=== PATIENT | female | born 1930 | race Caucasian/White ===

== ENCOUNTER 2016-07-06 02:34 | Inpatient (IN) | payer OTHER, MEDICARE ==
[2016-07-06] MEDS ORDERED: ALBUTEROL SO4 2.5/IPRATROPIUM 0.5 INH SOL 3 ML VIAL.NEB. NEB ONE (03:03)
[2016-07-06 03:05] LABS: MCH 33.6 pg (25.7-33.7); MCHC 32.6 g/dl (32.0-36.0); MEAN CELL VOLUME 102.8 fl (80-96); MEAN PLT VOLUME 8.6 fl (7.5-11.1); PLATELET COUNT 333 K/MM3 (134-434); RDW 18.9 % (11.6-15.6); WHITE BLOOD COUNT 4.1 K/mm3 (4.0-10.0)
[2016-07-06] MEDS ORDERED: NITROGLYCERIN 2% OINTMENT - 1GM PACKET TD ONE (03:14)
[2016-07-06] MEDS ORDERED: FUROSEMIDE 40 MG/4 ML INJECTABLE VIAL IVPUSH ONE ×2 (03:14→03:25)
[2016-07-06 03:19] LABS: INR 2.97 (0.82-1.09); PROTHROMBIN TIME (PATIENT) 33.4 SEC (9.98-11.88)
[2016-07-06 03:22] LABS: ACTIVATED PTT 31.8 SECONDS (26.9-34.4)
[2016-07-06] MEDS ORDERED: FUROSEMIDE 40 MG/4 ML INJECTABLE VIAL ONE (03:30)
[2016-07-06 04:01] LABS: ANISOCYTOSIS 1+; PLATELET COMMENT2 MOD LARGE PLTS; PLATELET ESTIMATE ADEQUATE (NORMAL)
[2016-07-06] MEDS ORDERED: methylPREDNISolone NA SUCC 125 MG/2 ML VIAL IVPB ONE (04:03)
[2016-07-06] MEDS ORDERED: LEVOFLOXACIN 500 MG IVPB 100 ML IVPB ONE (04:07)
[2016-07-06] MEDS ORDERED: LEVOFLOXACIN 250 MG IVPB 50 ML IVPB ONE (04:07)
[2016-07-06] MEDS ORDERED: methylPREDNISolone NA SUCC 125 MG/2 ML VIAL ONE (04:07)
[2016-07-06 04:15] LABS: METAMYELOCYTE 3 % (0-2)
[2016-07-06 04:18] LABS: URINE APPEARANCE TURBID; URINE BILIRUBIN NEGATIVE (NEGATIVE); URINE COLOR YELLOW; URINE GLUCOSE (UA) NEGATIVE (NEGATIVE); URINE KETONE NEGATIVE (NEGATIVE); URINE NITRITE NEGATIVE (NEGATIVE); URINE UROBILINOGEN NEGATIVE E.U./dl (0.2-1.0)
--- NOTE | 2016-07-06 04:18 | PDOC ---
History of Present Illness - General Chief Complaint: Shortness of Breath Stated Complaint: DIFFICULTY BREATHING Time Seen by Provider: 07/06/16 02:48 History Source: Family, Custodial Records Exam Limitations: Clinical Condition - History of Present Illness Initial Comments: 07/06/16 04:13 86yo Female patient presents to ED via EMS from [facility] for difficulty breathing/hypoxia. Staff report patient vomited today and may have aspirated her vomitus. Tammy (Daughter) states while visiting patient today , patient verbalized she wasnt feeling good. Tammy states when she returned later in the day, she noticed mother having trouble breathing which eventually progressed. Daughter reports hx rectal CA, Liver failure, Renal failure, DM, HTN , Pacemaker, recurrent UTI, Pneumonia, elevated ammonia and others. Patient was given zofran by staff at [facility] for nausea. Patient in a DNR. Past History - Travel Traveled outside of the country in the last 30 days: No Close contact w/someone who was outside of country & ill: No - Past Medical History Allergies/Adverse Reactions: Allergies Allergy/AdvReac Type Severity Reaction Status Date / Time No Known Allergies Allergy Verified 07/06/16 02:44 Home Medications: Ambulatory Orders Allopurinol [Zyloprim -] 300 mg PO DAILY 12/08/15 Ascorbic Acid [Vitamin C] 500 mg PO DAILY 12/08/15 Cholecalciferol (Vitamin D3) [Vitamin D3] 50,000 unit PO WEEKLY 12/08/15 Diltiazem Cd [Cardizem Cd -] 300 mg PO DAILY 12/08/15 Furosemide [Lasix -] 40 mg PO DAILY 12/08/15 Glipizide [Glucotrol -] 5 mg PO DAILY 12/08/15 Insulin Detemir [Levemir Flextouch] 15 unit SQ HS 12/08/15 Metolazone [Zaroxolyn -] 2.5 mg PO DAILY 12/08/15 Pantoprazole Sodium [Protonix -] 40 mg PO DAILY 12/08/15 Potassium Chloride [K-Dur -] 20 meq PO DAILY 12/08/15 Propranolol HCl [Inderal -] 40 mg PO TID 12/08/15 Tiotropium [place] [Spiriva] 1 inh PO DAILY 12/08/15 Warfarin Sodium [Coumadin] 1.5 mg PO HS 07/02/16 Anemia: Yes Asthma: No Cancer: Yes (Breast,rectal, skin) Cardiac Disorders: Yes (afib, mitral insuff, PPM) CVA: No COPD: No CHF: Yes Dementia: No Diabetes: Yes (IDDM) GI Disorders: No Disorders: Yes (RENAL STONE) HTN: Yes Hypercholesterolemia: Yes Liver Disease: No Seizures: No Thyroid Disease: No - Surgical History Abdominal Surgery: Yes (18 inches of intestine removed) Appendectomy: No Cardiac Surgery: Yes (pacemaker) Cholecystectomy: No Lung Surgery: No Neurologic Surgery: No Orthopedic Surgery: No - Immunization History Immunization Up to Date: Yes - Psycho/Social/Smoking Cessation Hx Anxiety: No Suicidal Ideation: No Smoking Status: No Smoking History: Never smoked Have you smoked in the past 12 months: No Number of Cigarettes Smoked Daily: 0 Hx Alcohol Use: No Drug/Substance Use Hx: No Substance Use Type: None Hx Substance Use Treatment: No Respiratory Specific PMHX - Complaint Specific PMHX Angina: No Bronchitis: No Pneumonia: Yes Pulmonary Embolus: No TB (Tuberculosis): No Review of Systems - Review of Systems Constitutional: No: Chills, Fever Respiratory: Yes: Cough, Shortness of Breath, Other (Difficulty Breathing) Cardiac (ROS): Yes: Edema, Other (Pacemaker). No: Chest Pain ABD/GI: Yes: Nausea, Poor Appetite, Poor Fluid Intake, Vomiting. No: Constipated, Diarrhea, Rectal Bleeding, Tarry Stools : Yes: Dysuria. No: Burning, Discharge, Frequency, Hematuria, Pain, Urgency Musculoskeletal: Yes: Muscle Weakness. No: Back Pain Integumentary: No: Bruising, Erythema, Rash, Sweating Neurological: No: Headache, Numbness, Paresthesia, Seizure, Tingling, Tremors, Weakness, Unsteady Gait, Ataxia, Dizziness Hematologic/Lymphatic: Yes: Easy Bleeding, Easy Bruising. No: Anemia All Other Systems: Reviewed and Negative *Physical Exam - Vital Signs Last Vital Signs Temp Pulse Resp BP Pulse Ox 98.4 F 100 H 24 144/127 83 L 07/06/16 02:36 07/06/16 02:36 07/06/16 02:36 07/06/16 02:36 07/06/16 02:36 - Physical Exam General Appearance: Yes: Apparent Distress, Severe Distress. No: Nourished, Appropriately Dressed, Disheveled, Mild Distress, Moderate Distress Neck: positive: Trachea midline, Supple. negative: Stridor, Lymphadenopathy (R) , Lymphadenopathy (L) Respiratory/Chest: positive: Respiratory Distress, Labored Respiration, Rapid RR , Crackles (Throughout all lung marcus). negative: Accessory Muscle Use Cardiovascular: positive: Tachycardia (130) Gastrointestinal/Abdominal: positive: Soft, Increased Bowel Sounds, Distended. negative: Guarding, Rebound, Tenderness Musculoskeletal: positive: Normal Inspection. negative: CVA Tenderness Extremity: positive: Normal Range of Motion, Delayed Capillary Refill, Pedal Edema, Swelling. negative: Cyanosis, Calf Tenderness, Erythema Integumentary: positive: Dry, Warm, Pale. negative: Cold, Clammy, Rash, Swelling, Bruising Neurologic: positive: Alert, Responsive Heart Score/ECG Review - History History: Slightly suspicious - Electrocardiogram EKG: Non specific repolarization disturbance - Age Age: >/= 65 - Risk Factors Risk Factors Heart Score: Yes Hx Hypertension, Yes Hx Diabetes Based on the list above the patient has:: 1-2 risk factors - Troponin Troponin: </= normal limit - Score Heart Score - Total: 4 - ECG Impressions Normal ECG: No Non-specific ST Elevation: No Ischemic Changes: No Bradycardia: No Tachycardia: Afib w/rapid Vent rate Torsades mariah Pointes: No WPW: No ED Treatment Course - LABORATORY CBC & Chemistry Diagram: 07/06/16 02:55 07/06/16 06:20 - ADDITIONAL ORDERS Additional order review: Laboratory Results 07/06/16 07/06/16 02:55 02:55 INR 2.97 H PTT (Actin FS) 31.8 Sodium Cancelled Potassium Cancelled Chloride Cancelled Carbon Dioxide Cancelled Anion Gap Cancelled BUN Cancelled Creatinine Cancelled Creat Clearance w eGFR Cancelled Random Glucose Cancelled Calcium Cancelled Total Bilirubin Cancelled AST Cancelled ALT Cancelled Alkaline Phosphatase Cancelled Creatine Kinase Cancelled Troponin I Cancelled B-Natriuretic Peptide Cancelled Total Protein Cancelled Albumin Cancelled 07/06/16 02:55 RBC 3.71 D MCV 102.8 H MCHC 32.6 RDW 18.9 H MPV 8.6 Neutrophils % Bread Oven Operator Lymphocytes % Bread Oven Operator Monocytes % Bread Oven Operator Eosinophils % Bread Oven Operator Basophils % Bread Oven Operator - RADIOLOGY Radiology Studies Ordered: Category Date Time Status CHEST X-RAY PORTABLE* [RAD] Stat Radiology 07/06/16 02:49 Taken - Medications Given in the ED: ED Medications Discontinued Medications Generic Name Dose Route Start Last Admin Trade Name Adam PRN Reason Stop Dose Admin Furosemide 40 mg 07/06/16 03:14 07/06/16 03:55 Lasix Injection - IVPUSH 07/06/16 03:15 Not Given ONCE ONE Furosemide 60 mg 07/06/16 03:25 07/06/16 03:54 Lasix Injection - IVPUSH 07/06/16 03:26 60 mg ONCE ONE Administration Nitroglycerin 1 inch 07/06/16 03:14 07/06/16 03:54 Nitro-Bid 2% Paste - TD 07/06/16 03:15 1 inch ONCE ONE Administration Medical Decision Making - Critical Care Time Total Critical Care Time (minutes): 180 Critical Care Statement: The care of this patient involved high complexity decision making to prevent further life threatening deterioration of the patient 's condition and/or to evalute & treat vital organ system(s) failure or risk of failure. - Medical Decision Making 07/06/16 04:29 Patient jail resident. Will do full work-up (CBC, CMP, INR, Cardiac Profile, EKG, Chest X-ray, Urinalysis, Lactic Acid, Ammonia level, ABG, BNP). Give lasix 60mg IV, Nitro paste TD, Levoquin 750mg call for admission. Differential 1. Sepsis 2. Pneumonia 3. Acute Heart Failure 4. UTI 5. ME 07/06/16 07:29 SPOKE WITH [facility] [employer] ([facility]). PATIENT ADMITTED TO THIS UNIT. *DC/Admit/Observation/Transfer Diagnosis at time of Disposition: Hypoxia, Pacemaker, Bandemia Acute exacerbation of CHF (congestive heart failure) Qualifiers: Congestive heart failure type: unspecified congestive heart failure type Qualified Code(s): I50.9 - Heart failure, unspecified Leukocytosis (leucocytosis) Qualifiers: Leukocytosis type: bandemia Qualified Code(s): D72.825 - Bandemia Diabetes mellitus Qualifiers: Diabetes mellitus type: type 1 Diabetes mellitus complication status: without complication Qualified Code(s): E10.9 - Type 1 diabetes mellitus without complications Aspiration pneumonia Qualifiers: Aspiration pneumonia type: due to vomit Laterality: right Lung location: upper lobe of lung Qualified Code(s): J69.0 - Pneumonitis due to inhalation of food and vomit - Discharge Dispostion Condition at time of disposition: Critical Admit: Yes - Referrals Referrals: Skye Darby MD [Primary Care Provider] -
[2016-07-06 04:20] LABS: URINE BLOOD 1+ (NEGATIVE); URINE LEUK ESTERASE 2+ (NEGATIVE); URINE PROTEIN 2+ (NEGATIVE)
[2016-07-06 04:22] LABS: URINE BACTERIA MANY /hpf (NONE SEEN); URINE MUCUS MODERATE; URINE RBC 31 /hpf (0-3); URINE WBC 3112 /hpf (3-5)
[2016-07-06 04:23] LABS: ARTERIAL BLD GAS O2 SATURATION 92.4 % (90-98.9); ARTERIAL BLOOD GAS BASE EXCESS -8.4 meq/l (-2-2); ARTERIAL BLOOD GAS HCO3 13.6 meq/L (22-26); ARTERIAL BLOOD GAS PO2 61.5 mmHg (68-100); ARTERIAL BLOOD GAS pH 7.45 (7.35-7.45)
[2016-07-06 04:25] LABS: ALLENS TEST POSITIVE; ART PUNCT SITE LEFT BRACHIAL; METHEMOGLOBIN 1.1 % (0.4-1.5); PT. ON O2? YES
[2016-07-06 04:26] LABS: LPM/O2% 100; TYPE OF O2 BIPAP; VENT RATE 14; VT/PRESS 14/4
[2016-07-06] MEDS ORDERED: LEVOFLOXACIN 750 MG IVPB 150 ML IVPB ONE (04:37)
[2016-07-06 05:36] LABS: ALBUMIN 2.1 g/dl (3.4-5.0); ALK PHOS 132 U/L (45-117); AMYLASE 54 U/L (25-115); ANION GAP 20 (8-16); BILIRUBIN,TOTAL 0.9 mg/dL (0.2-1.0); CALCIUM 7.1 mg/dL (8.5-10.1); CO2 14 mmol/L (21-32); CREATININE 3.8 mg/dL (0.55-1.02); TOT PROT 5.2 g/dl (6.4-8.2); TROPONIN I < 0.02 ng/ml (0.00-0.05)
[2016-07-06 05:38] LABS: SGOT/AST 11 U/L (15-37)
[2016-07-06 05:39] LABS: SGPT/ALT < 6 U/L (12-78)
[2016-07-06 05:40] LABS: GLUCOSE,RANDOM 905 mg/dL (74-106)
[2016-07-06 05:49] LABS: ALBUMIN 1.9 g/dl (3.4-5.0); ANION GAP 20 (8-16); CO2 13 mmol/L (21-32)
[2016-07-06 05:55] LABS: ALK PHOS 109 U/L (45-117); BILIRUBIN,TOTAL 0.7 mg/dL (0.2-1.0); CREATININE 3.5 mg/dL (0.55-1.02); TOT PROT 4.3 g/dl (6.4-8.2); TROPONIN I 0.02 ng/ml (0.00-0.05)
[2016-07-06 06:15] LABS: GLUCOSE,RANDOM 1463 mg/dL (74-106)
[2016-07-06 06:16] LABS: CALCIUM 6.2 mg/dL (8.5-10.1)
[2016-07-06] MEDS ORDERED: SODIUM CHLORIDE 1,000 ML IV SCH (06:30)
[2016-07-06] MEDS ORDERED: INSULIN REGULAR 100 UNITS in SODIUM CHLORIDE 99 ML IVPB SCH (06:30)
[2016-07-06 06:49] LABS: ALBUMIN 2.5 g/dl (3.4-5.0); CALCIUM 8.8 mg/dL (8.5-10.1); CREATININE 4.3 mg/dL (0.55-1.02); TOT PROT 6.3 g/dl (6.4-8.2)
[2016-07-06 07:13] LABS: CALCIUM 8.6 mg/dL (8.5-10.1); CREATININE 4.3 mg/dL (0.55-1.02)
[2016-07-06] MEDS ORDERED: morphine CARPU-JECT 2 MG/1 ML DISP.SYRIN IVPUSH PRN (08:45)
--- NOTE | 2016-07-06 08:58 | CONSULT ---
Consult - text type - Consultation Consultation Note: admit 07/06 admit diagnosis: resp failure Pulm/CCM 86 yo woman NHR presented with hypoxia after emesis. Per her family she has been in declining health with liver, progressive renal failure which the patient had refused dialysis. In the ED she was given ABX: levaquin. She was placed on NIPPV for hypoxia. ABG 7.45/20/61 on 100%. She is DNR/DNI. On arrival to ICU patient with agonal respirations. Family bedside. NIPPV discontinued given non responsive mental status. Per family discussion morphine was provided for comfort. 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 Cardio/Vascular AFIB,CHF,Deep Vein Thrombosis,HTN,Mitral Insufficiency,Other Pulmonary COPD,Pneumonia,Other Gastrointestinal Cancer,GI Bleed,Other Hepatobiliary Other Renal/ Renal Inusuff,Renal Calculi,UTI Heme/Onc Anemia,Cancer Infectious Disease Other Rheumatology Gout Endocrine Diabetes Mellitus,SIADH Dermatology Squamous Cell Vital Signs Period Temp Pulse Resp BP Sys/Bustillo Pulse Ox Last 24 Hr 98.4 F 89-106 24-34 97-144/60-127 83-94 Intake & Output 07/03/16 07/04/16 07/05/16 07/06/16 23:59 23:59 23:59 23:59 Weight 68.039 kg exam: pupils sluggish CV: s1, s2 Pulm: rhonchi abd: SNTDS ext: =2 Le edema neuro: non responsive to stimulation CBCD WBC 4.1 K/mm3 (4.0-10.0) D 07/06/16 02:55 RBC 3.71 M/mm3 (3.60-5.2) D 07/06/16 02:55 Hgb 12.4 GM/dL (10.7-15.3) D 07/06/16 02:55 Hct 38.1 % (32.4-45.2) D 07/06/16 02:55 MCV 102.8 fl (80-96) H 07/06/16 02:55 MCHC 32.6 g/dl (32.0-36.0) 07/06/16 02:55 RDW 18.9 % (11.6-15.6) H 07/06/16 02:55 Plt Count 333 K/MM3 (134-434) D 07/06/16 02:55 MPV 8.6 fl (7.5-11.1) 07/06/16 02:55 CMP Sodium 133 mmol/L (136-145) L 07/06/16 06:20 Potassium 3.9 mmol/L (3.5-5.1) 07/06/16 06:20 Chloride 96 mmol/L (98-107) L 07/06/16 06:20 Carbon Dioxide 14 mmol/L (21-32) L 07/06/16 06:20 Anion Gap 23 (8-16) H 07/06/16 06:20 BUN 89 mg/dL (7-18) H 07/06/16 06:20 Creatinine 4.3 mg/dL (0.55-1.02) H 07/06/16 06:20 Creat Clearance w eGFR 9.77 (>60) 07/06/16 06:00 Random Glucose 161 mg/dL (74-106) H 07/06/16 06:20 Calcium 8.6 mg/dL (8.5-10.1) 07/06/16 06:20 Total Bilirubin 1.0 mg/dL (0.2-1.0) D 07/06/16 06:00 AST 14 U/L (15-37) L D 07/06/16 06:00 ALT 11 U/L (12-78) L D 07/06/16 06:00 Alkaline Phosphatase 157 U/L (45-117) H D 07/06/16 06:00 Total Protein 6.3 g/dl (6.4-8.2) L D 07/06/16 06:00 Albumin 2.5 g/dl (3.4-5.0) L D 07/06/16 06:00 CARDIAC ENZYMES Creatine Kinase 37 IU/L (26-192) 07/06/16 05:00 Troponin I 0.02 ng/ml (0.00-0.05) 07/06/16 05:00 All Active Problems Acute exacerbation of CHF (congestive heart failure) (Acute) Acute on chronic diastolic ACC/AHA stage C congestive heart failure (Acute) Aspiration pneumonia (Acute) Bandemia (Acute) Distal radius fracture, left (Acute) Hypoxia (Acute) Leukocytosis (leucocytosis) (Acute) Lung nodule (Acute) Pacemaker (Acute) Radius fracture (Acute) Diabetes mellitus (Chronic) Acute diastolic CHF (congestive heart failure) (Acute) Acute renal failure (Acute) Aspiration into respiratory tract (Acute) Aspiration pneumonia due to food (regurgitated) (Acute) Atrial fibrillation (Acute) CKD (chronic kidney disease) (Acute) Carcinoma (Acute) Cavitating mass in left upper lung lobe (Acute) Chronic diastolic CHF (congestive heart failure) (Acute) Community acquired bacterial pneumonia (Acute) Coumadin toxicity (Acute) Diabetes mellitus with renal complications (Acute) Fecal impaction (Acute) HTN (hypertension), malignant (Acute) Hip pain (Acute) History of pacemaker (Acute) Hyponatremia (Acute) Lung nodule seen on imaging study (Acute) Nausea & vomiting (Acute) Systolic heart failure (Acute) UTI (urinary tract infection) (Acute) UTI (urinary tract infection) with pyuria (Acute) Urinary (tract) obstruction (Acute) Vomiting (Acute) Breast CA (Chronic) CKD (chronic kidney disease) stage 3, GFR 30-59 ml/min (Chronic) Chronic atrial fibrillation (Chronic) HTN (hypertension) (Chronic) History of DVT (deep vein thrombosis) (Chronic) History of nephrolithiasis (Chronic) Macrocytic anemia (Chronic) Rectal cancer (Chronic) a/p: 86 yo woman with respiratory failure likely for aspiration pneumonia, DNR/ DNI comfort measures only -O2 for comfort -morphine for comfort -no labs, xrays, or invasive procedures -DNR/DNI Boerem ACNP Pulm/CCM CCT: 35
--- NOTE | 2016-07-06 09:17 | HP ---
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 Cardiovascular: Yes: AFIB, CHF, Deep Vein Thrombosis, HTN, Mitral Insufficiency , Other ( pacmaker) Pulmonary: Yes: COPD, Pneumonia (lt infiltrate), Other (janell mass/?) Gastrointestinal: Yes: Cancer (rectal), GI Bleed, Other (sp tips and rectal ca) Hepatobiliary: Yes: Other (tips inserted) Renal/: Yes: Renal Inusuff, Renal Calculi, UTI Heme/Onc: Yes: Anemia, Cancer (Rt breast 39yrs ago, L breast >10yrs ago) Infectious Disease: Yes: Other (MRSA bacteremia 2013) Musculoskeletal: Yes: Chronic low back pain, Osteoarthritis (tips sx done pacmaker rectal ca sx), Other (pain rt femur/ hip rt dvt in past) Rheumatology: Yes: Gout Endocrine: Yes: Diabetes Mellitus, SIADH (siadh /?) Dermatology: Yes: Squamous Cell (Rt arm) - Past Surgical History Past Surgical History: Yes: Colostomy (with subsequent reversal), Ileosotomy, Mastectomy (Rt mastectomy, L lumpectomy), Permanent Pacemaker - Smoking History Smoking history: Never smoked Have you smoked in the past 12 months: No Aproximately how many cigarettes per day: 0 - Alcohol/Substance Use Hx Alcohol Use: No Number of Drinks Daily: 0 (2 glasses wine per week) History of Substance Use: reports: None - Social History ADL: Independent 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 History of Recent Travel: No Home Medications - Allergies Allergies/Adverse Reactions: Allergies Allergy/AdvReac Type Severity Reaction Status Date / Time No Known Allergies Allergy Verified 07/06/16 02:44 - Home Medications Home Medications: Ambulatory Orders Allopurinol [Zyloprim -] 300 mg PO DAILY 12/08/15 Ascorbic Acid [Vitamin C] 500 mg PO DAILY 12/08/15 Cholecalciferol (Vitamin D3) [Vitamin D3] 50,000 unit PO WEEKLY 12/08/15 Diltiazem Cd [Cardizem Cd -] 300 mg PO DAILY 12/08/15 Furosemide [Lasix -] 40 mg PO DAILY 12/08/15 Glipizide [Glucotrol -] 5 mg PO DAILY 12/08/15 Insulin Detemir [Levemir Flextouch] 15 unit SQ HS 12/08/15 Metolazone [Zaroxolyn -] 2.5 mg PO DAILY 12/08/15 Pantoprazole Sodium [Protonix -] 40 mg PO DAILY 12/08/15 Potassium Chloride [K-Dur -] 20 meq PO DAILY 12/08/15 Propranolol HCl [Inderal -] 40 mg PO TID 12/08/15 Tiotropium [place] [Spiriva] 1 inh PO DAILY 12/08/15 Warfarin Sodium [Coumadin] 1.5 mg PO HS 12/08/15 Family Disease History - Family Disease History Family Disease History: Heart Disease: Brother (blood clot), Other: Brother, Sister (unknown) Physical Examination Vital Signs: Vital Signs Temperature 98.4 F 07/06/16 02:36 Pulse Rate 93 H 07/06/16 08:02 Respiratory Rate 30 H 07/06/16 08:02 Blood Pressure 103/60 07/06/16 08:02 O2 Sat by Pulse Oximetry (%) 86 L 07/06/16 08:02
[2016-07-06 09:22] VITALS: TEMP 100.7; BMI 25.5
--- NOTE | 2016-07-06 09:29 | PN ---
Progress Note (short form) - Note Progress Note: PMD is Dr Darby- I have spoken to Dr Darby to inform of pt's admission- Dr Montanez will take over care
--- NOTE | 2016-07-06 09:30 | EKG ---
Test Reason : Blood Pressure : / mmHG Vent. Rate : 112 BPM Atrial Rate : 105 BPM P-R Int : 000 ms QRS Dur : 090 ms QT Int : 332 ms P-R-T Axes : 000 -18 174 degrees QTc Int : 453 ms ATRIAL FIBRILLATION WITH RAPID VENTRICULAR RESPONSE WITH OCCASIONAL ventricular-paced complexes ABNORMAL ECG POOR DATA QUALITY, INTERPRETATION MAY BE ADVERSELY AFFECTED Confirmed by CB RIVERA MD ([id number]) on 07/06/2016 9:29:42 AM Referred By: Confirmed By:CB RIVERA MD
[2016-07-06] MEDS ORDERED: LEVOFLOXACIN 750 MG IVPB 150 ML IVPB SCH (10:00)
[2016-07-06 12:05] VITALS: BP 66/40; PULSE 60
== END 2016-07-06 13:10 | disposition expired | DRG 177 ==
LOC: JER 02:34 → JERBED 07:37 → JICU 08:33
PROVIDERS: ADMIT Internal Medicine; ATTEND Internal Medicine
DX: J69.0 Pneumonitis due to inhalation of food and vomit (principal); I50.33 Acute on chronic diastolic (congestive) heart failure; I13.0 Hypertensive heart and chronic kidney disease with heart failure and stage 1 through stage 4 chronic kidney disease, or unspecified chronic kidney disease; N18.9 Chronic kidney disease, unspecified; Z95.0 Presence of cardiac pacemaker; E11.9 Type 2 diabetes mellitus without complications; R09.02 Hypoxemia; E78.00 Pure hypercholesterolemia, unspecified; I48.91 Unspecified atrial fibrillation; Z79.01 Long term (current) use of anticoagulants; I34.0 Nonrheumatic mitral (valve) insufficiency; D72.825 Bandemia; E11.22 Type 2 diabetes mellitus with diabetic chronic kidney disease; Z79.4 Long term (current) use of insulin; Z85.3 Personal history of malignant neoplasm of breast; Z85.828 Personal history of other malignant neoplasm of skin; Z85.048 Personal history of other malignant neoplasm of rectum, rectosigmoid junction, and anus; Z66 Do not resuscitate
CPT/HCPCS: 36415; 36600; 71010-TC; 80048; 80053; 81003; 81015; 82140; 82150; 82375; 82550; 82803; 83050; 83605; 83690; 83880; 84484; 85025; 85610; 85730; 87040; 87077; 87086; 87186; 93005; 93010; 99285-25